=== PATIENT | male | born 1980 | race Caucasian/White ===

== ENCOUNTER 2018-12-21 19:48 | Emergency (ER) | payer OTHER ==
[2018-12-21 20:42] VITALS: TEMP 97.7
[2018-12-21] MEDS ORDERED: predniSONE 50 MG TAB PO STA (22:07)
[2018-12-21] MEDS ORDERED: KETOROLAC 60 MG/2 ML VIAL IM STA (22:07)
--- NOTE | 2018-12-21 23:10 | XR ---
EXAM: XR Lumbar Spine, 2 or 3 Views CLINICAL HISTORY: Pain TECHNIQUE: Frontal and lateral views of the lumbar spine. COMPARISON: No relevant prior studies available. FINDINGS: Vertebrae: Unremarkable. No acute fracture. Normal alignment. Disc spaces: Mild degenerative changes at L5-S1 Soft tissues: Unremarkable. IMPRESSION: No acute fracture or malalignment lumbar spine
--- NOTE | 2018-12-21 23:27 | ED ---
General Adult HPI - General Chief complaint: Back Pain/Injury Stated complaint: Lower back pain Time Seen by Provider: 12/21/18 21:13 Source: patient, RN notes reviewed, old records reviewed Mode of arrival: ambulatory Limitations: no limitations - History of Present Illness Initial comments: 38-year-old male patient passed no history of chronic lower back pain presents to ED with exacerbation of lumbar back pain. Patient reports that he has midline lumbar back pain which radiates down his left leg. Patient denies any recent injury. Patient states that this back pain feels similar to back pain he has had in the past. Patient denies any fevers or chills, history of IV drug use. Patient denies saddle anesthesia, loss of bowel or bladder control, lower extremity weakness. Patient denies other complaints. Systemic: Pt denies fatigue, fever/chills, rash. Pt denies weakness, night sweats, weight loss. Neuro: Pt denies headache, visual disturbances, syncope or pre-syncope. HEENT: Pt denies ocular discharge or irritation, otalgia, rhinorrhea, pharyngitis or notable lymphadenopathy. Cardiopulmonary: Pt denies chest pain, SOB, heart palpitations, dyspnea on exertion. Abdominal/GI: Pt denies abdominal pain, n/v/d. : Pt denies dysuria, burning w/ urination, frequency/urgency. Denies new onset urinary or bowel incontinence. MSK: Pt denies loss of strength or function in extremities. Neuro: Pt denies new onset weakness, paresthesias. - Related Data Previous Rx's Medication Instructions Recorded Ibuprofen [Motrin] 600 mg PO Q6HR PRN #40 day 12/21/18 predniSONE 50 mg PO DAILY #4 tab 12/21/18 Allergies Allergy/AdvReac Type Severity Reaction Status Date / Time No Known Allergies Allergy Verified 12/21/18 20:42 Review of Systems ROS Statement: Those systems with pertinent positive or pertinent negative responses have been documented in the HPI. ROS Other: All systems not noted in ROS Statement are negative. Past Medical History Additional Past Medical History / Comment(s): Kidney stones. History of Any Multi-Drug Resistant Organisms: None Reported Past Surgical History: Hernia Repair Past Psychological History: No Psychological Hx Reported Smoking Status: Current every day smoker Past Alcohol Use History: Rare Past Drug Use History: Marijuana General Exam - General Exam Comments Initial Comments: Constitutional: NAD, AOX3, Pt has pleasant affect. HEENT: NC/AT, trachea midline, neck supple, no lymphadenopathy. Posterior pharynx non erythematous, without exudates. External ears appear normal, without discharge. Mucous membranes moist. Eyes PERRLA, EOM intact. There is no scleral icterus. No pallor noted. Cardiopulmonary: RRR, no murmurs, rubs or gallops, no JVD noted. Lungs CTAB in anterior and posterior aldridge. No peripheral edema. Abdominal exam: Abdomen soft and non-distended. Abdomen non-tender to palpation in all 4 quadrants. Bowel sounds active in LLQ. No hepatosplenomegaly. No ecchymosis Neuro: CN II-XII grossly intact. No nuchal rigidity. MSK: 5 out of 5 strength psoas and quadriceps. Patellar and Achilles reflex 2 out of 4 bilaterally. Heel to toe walking intact. L straight leg raise positive. R striaght leg raise negative. No posterior calf tenderness bilaterally, homans sign negative bilaterally. Posterior tibialis and radial pulse +2 bilaterally. Sensation intact in upper and lower extremities. Full active ROM in upper and lower extremities, 5/5 stregnth. Limitations: no limitations Course Vital Signs 12/21/18 20:39 Temperature 97.7 F Pulse Rate 73 Respiratory 18 Rate Blood Pressure 118/53 O2 Sat by Pulse 97 Oximetry Medical Decision Making - Medical Decision Making 38-year-old male patient passed no history of chronic lower back pain presents to ED with exacerbation of lumbar back pain. Patient reports that he has midline lumbar back pain which radiates down his left leg. Patient denies any recent injury. Patient states that this back pain feels similar to back pain he has had in the past. Patient denies any fevers or chills, history of IV drug use. Patient denies saddle anesthesia, loss of bowel or bladder control, lower extremity weakness. Patient denies other complaints. Pt VSS, afebrile. Physical exam displayed: 5 out of 5 strength psoas and quadriceps. Patellar and Achilles reflex 2 out of 4 bilaterally. Heel to toe walking intact. L straight leg raise positive. R striaght leg raise negative. Plain film of lumbar spine displayed no acute fracture, mild degenerative changes at L5-S1. Pt condition improved with Toradol in ED. Patient additionally administered 50 mg prednisone. Patient to follow up with orthopedic consult tomorrow. Patient referred to [facility] clinic. Pt to take 4 additional days of prednisone. Pt to return to ED if new s/sx develop. Case discussed with Dr. Warner. Disposition Clinical Impression: Lumbar back pain Disposition: HOME SELF-CARE Condition: Stable Instructions (If sedation given, give patient instructions): Chronic Back Pain (ED) Additional Instructions: Patient to adhere to previously discussed treatment plan and will take medication(s) as directed. Patient to follow up with PCP in 1-2 days. Patient to return to ED if symptoms do not improve. Prescriptions: Ibuprofen [Motrin] 600 mg PO Q6HR PRN #40 day PRN Reason: Pain predniSONE 50 mg PO DAILY #4 tab Is patient prescribed a controlled substance at d/c from ED?: No Referrals: None,Stated [Primary Care Provider] - 1-2 days [facility] [NON-STAFF] - 1-2 days Rj Thomas DO [Doctor of Osteopathic Medicine] - 1-2 days
[2018-12-22 02:39] VITALS: BP 109/72; PULSE 72; RESP 16
== END 2018-12-21 23:37 | disposition home or self-care (01) ==
LOC: EC 19:48
DX: M54.5 Low back pain (principal); M47.817 Spondylosis without myelopathy or radiculopathy, lumbosacral region; M79.605 Pain in left leg; F17.200 Nicotine dependence, unspecified, uncomplicated
CPT/HCPCS: 72100; 99284; 96372; J1885; J7512